=== PATIENT | female | born 1995 | race Hispanic/Latino ===

== ENCOUNTER 2022-10-24 14:29 | Inpatient (IN) | payer MEDICAID, OTHER ==
[~2022-10-24] VITALS: Ht 160 cm; Wt 71.5 kg
[~2022-10-24 14:29] MED LIST: ACET-66 PO; PREN1TAB26 PO
[2022-10-24 15:27] LABS: POTASSIUM 3.7 mmol/L (3.5-5.1)
[2022-10-24] MEDS ORDERED: PROPOFOL 1000 MG/100 ML 0 ML IV ONE (15:30)
[2022-10-24 15:37] LABS: APPEARANCE,URINE CLEAR (CLEAR); BILIRUBIN,URINE NEGATIVE (NEGATIVE); COLOR,URINE LIGHT-YELLOW (YELLOW); GLUCOSE, URINE (UA) NEGATIVE (NEGATIVE); KETONES,URINE 5 mg/dL (NEGATIVE); LEUKOCYTE ESTERASE ,URINE NEGATIVE Leu/uL (NEGATIVE); NITRATE,URINE NEGATIVE (NEGATIVE); OCCULT BLOOD,URINE NEGATIVE (NEGATIVE); PH,URINE 6.5 (5.0-8.0); PROTEIN,URINE NEGATIVE (NEGATIVE); UROBILINOGEN,URINE 0.2 mg/dL (0.2-1.0)
[2022-10-24 15:42] LABS: HCG,QUALITATIVE URINE NEGATIVE (NEGATIVE)
[2022-10-24 15:44] LABS: BACTERIA,URINE MOD /HPF (None Seen); SQUAMOUS EPITHELIAL CELL,UR FEW /HPF (0-2)
[2022-10-24 15:46] LABS: BASOPHILS % (AUTO) 0.3 % (0.0-5.0); EOSINOPHILS % (AUTO) 0.9 % (0.0-8.0); HEMATOCRIT 34.1 % (36-48); MEAN CORPUSCULAR HEMOGLOBIN 24.6 pg (27.0-33.0); MEAN CORPUSCULAR HGB CONC 33.4 g/dL (32.0-36.0); MEAN CORPUSCULAR VOLUME 73.7 fL (79-99); NEUTROPHILS % (AUTO) 71.4 % (40.0-77.0); PLATELET COUNT (AUTO) 536 K/uL (130-400); RED BLOOD CELL COUNT(AUTO) 4.63 MIL/uL (4.00-5.50); RED CELL DISTRIBUTION WIDTH 12.4 % (11.0-15.5); WHITE BLOOD COUNT (AUTO) 10.3 K/uL (4.8-10.8)
[2022-10-24] MEDS ORDERED: KETOROLAC 15MG/ML VIAL (15MG/ML) IV ONE (16:00)
[2022-10-24] MEDS ORDERED: CEFTRIAXONE 1G VIAL IVP ONE (16:00)
[2022-10-24] MEDS ORDERED: 0.9%NACL 1000ML 1,000 ML IV ONE (16:00)
[2022-10-24] MEDS ORDERED: MORPHINE 2 MG SYG IVP PRN (18:30)
[2022-10-24] MEDS ORDERED: VANCOMYCIN PROTOCOL PER PHARMACY IV SCH (18:30)
[2022-10-24 19:11] LABS: HEMOGLOBIN A1C 11.1 % (4.0-6.0)
[2022-10-24] MEDS: ZOSYN 3.375GM +NS 50ML IV SCH (19:11)
[2022-10-24] MEDS: FAMOTIDINE 20MG VIAL IV SCH (21:02)
[2022-10-24] MEDS: VANCOMYCIN 1G/250ML KIT 250 ML IV SCH (21:02)
[2022-10-24] MEDS: ACETAMINOPHEN 325 MG TAB PO PRN (21:03)
[2022-10-24 23:30] VITALS: BP 120/70
[2022-10-25] VITALS (24 sets, daily range): BP systolic 108–126; BP diastolic 62–79
[2022-10-25] MEDS: ACETAMINOPHEN 325 MG TAB PO PRN ×2 (00:06→05:32)
[2022-10-25] MEDS: ONDANSETRON 4MG INJ IVP PRN ×2 (00:06→21:20)
[2022-10-25] MEDS: ZOSYN 3.375GM +NS 50ML IV SCH ×3 (02:40→21:01)
[2022-10-25 04:55] LABS: BASOPHILS % (AUTO) 0.4 % (0.0-5.0); HEMATOCRIT 30.6 % (36-48); LYMPHOCYTES % (AUTO) 28.8 % (21.0-51.0); MEAN CORPUSCULAR HGB CONC 32.7 g/dL (32.0-36.0); MEAN CORPUSCULAR VOLUME 76.5 fL (79-99); MONOCYTES % (AUTO) 6.9 % (3.0-13.0); NEUTROPHILS % (AUTO) 62.3 % (40.0-77.0); PLATELET COUNT (AUTO) 425 K/uL (130-400); RED CELL DISTRIBUTION WIDTH 12.3 % (11.0-15.5); WHITE BLOOD COUNT (AUTO) 10.8 K/uL (4.8-10.8)
[2022-10-25 05:06] LABS: ALBUMIN 2.4 g/dL (3.5-5.0); CREATININE 0.7 mg/dL (0.5-1.5); POTASSIUM 3.6 mmol/L (3.5-5.1); TOTAL PROTEIN, SERUM 7.4 g/dL (6.0-8.3)
[2022-10-25] MEDS: INSULIN HUMULIN R 100 UNIT/ML 3ML SQ SCH ×3 (05:42→18:00)
[2022-10-25] MEDS: FAMOTIDINE 20MG VIAL IV SCH ×2 (08:36→21:01)
[2022-10-25] MEDS: VANCOMYCIN 1G/250ML KIT 250 ML IV SCH ×2 (08:47→21:01)
[2022-10-25] MEDS ORDERED: LIDOCAINE HCL 1% 20 ML VIAL ONE (16:20)
[2022-10-25] MEDS ORDERED: BUPIVACAINE/PF 0.5% 10ML VIAL ONE (16:20)
[2022-10-25] MEDS ORDERED: ROCURONIUM 10MG/1ML SYR 10 MG/ML ML ONE (18:01)
[2022-10-25] MEDS ORDERED: MIDAZOLAM HCL 1 MG/ML 2ML VIAL ONE (18:01)
[2022-10-25] MEDS ORDERED: PROPOFOL 10 MG/ML 20ML VIAL IV ONE (18:01)
[2022-10-25] MEDS ORDERED: ONDANSETRON 4MG INJ ONE (18:01)
[2022-10-25] MEDS ORDERED: FENTANYL CITRATE PF 50 MCG/1 ML 2ML VIAL ONE (18:03)
[2022-10-25] MEDS ORDERED: HYDROMORPHONE 1 MG INJ IVP PRN (20:30)
[2022-10-25] MEDS ORDERED: OXYCODONE/ACETAMIN 5/325MG TAB PO PRN (20:30)
[2022-10-26 00:15] VITALS: BP 111/67
[2022-10-26] MEDS: ZOSYN 3.375GM +NS 50ML IV SCH ×3 (02:19→17:40)
[2022-10-26 03:10] VITALS: BP 115/57
[2022-10-26 05:12] LABS: BASOPHILS % (AUTO) 0.2 % (0.0-5.0); EOSINOPHILS % (AUTO) 2.2 % (0.0-8.0); HEMATOCRIT 28.1 % (36-48); LYMPHOCYTES % (AUTO) 34.7 % (21.0-51.0); MEAN CORPUSCULAR HEMOGLOBIN 24.3 pg (27.0-33.0); MEAN CORPUSCULAR HGB CONC 32.7 g/dL (32.0-36.0); MEAN CORPUSCULAR VOLUME 74.1 fL (79-99); MONOCYTES % (AUTO) 3.9 % (3.0-13.0); NEUTROPHILS % (AUTO) 58.7 % (40.0-77.0); PLATELET COUNT (AUTO) 423 K/uL (130-400); RED BLOOD CELL COUNT(AUTO) 3.79 MIL/uL (4.00-5.50); RED CELL DISTRIBUTION WIDTH 12.1 % (11.0-15.5); WHITE BLOOD COUNT (AUTO) 9.1 K/uL (4.8-10.8)
[2022-10-26] MEDS: ONDANSETRON 4MG INJ IVP PRN (05:25)
[2022-10-26] MEDS: INSULIN HUMULIN R 100 UNIT/ML 3ML SQ SCH ×5 (05:25→19:58)
[2022-10-26 05:32] LABS: ALBUMIN 2.2 g/dL (3.5-5.0); CREATININE 0.7 mg/dL (0.5-1.5); MAGNESIUM 1.8 mg/dL (1.80-2.40); POTASSIUM 3.3 mmol/L (3.5-5.1); TOTAL PROTEIN, SERUM 7.1 g/dL (6.0-8.3)
[2022-10-26 07:30] VITALS: BP 122/72
[2022-10-26] MEDS: VANCOMYCIN 1G/250ML KIT 250 ML IV SCH ×2 (08:53→19:58)
[2022-10-26] MEDS: FAMOTIDINE 20MG VIAL IV SCH ×2 (08:53→19:58)
[2022-10-26] MEDS ORDERED: KCL 20 MEQ ERTAB PO SCH (10:30)
[2022-10-26 11:00] VITALS: BP 119/76
[2022-10-26 16:00] VITALS: BP 124/81
[2022-10-26] MEDS: MAGNESIUM 2GM PREMIX 50ML 50 ML IV SCH (17:32)
[2022-10-26 20:00] VITALS: BP 124/75
[2022-10-27] VITALS: BP 119/77
[2022-10-27] MEDS: ZOSYN 3.375GM +NS 50ML IV SCH ×3 (03:09→19:08)
[2022-10-27 04:00] VITALS: BP 128/70
[2022-10-27 05:15] LABS: BASOPHILS % (AUTO) 0.4 % (0.0-5.0); EOSINOPHILS % (AUTO) 3.7 % (0.0-8.0); HEMATOCRIT 29.2 % (36-48); LYMPHOCYTES % (AUTO) 35.8 % (21.0-51.0); MEAN CORPUSCULAR HEMOGLOBIN 24.5 pg (27.0-33.0); MEAN CORPUSCULAR HGB CONC 33.2 g/dL (32.0-36.0); MEAN CORPUSCULAR VOLUME 73.7 fL (79-99); MONOCYTES % (AUTO) 6.2 % (3.0-13.0); NEUTROPHILS % (AUTO) 53.8 % (40.0-77.0); PLATELET COUNT (AUTO) 425 K/uL (130-400); RED BLOOD CELL COUNT(AUTO) 3.96 MIL/uL (4.00-5.50); RED CELL DISTRIBUTION WIDTH 12.2 % (11.0-15.5); WHITE BLOOD COUNT (AUTO) 7.1 K/uL (4.8-10.8)
[2022-10-27 05:30] LABS: ALBUMIN 2.3 g/dL (3.5-5.0); CREATININE 0.8 mg/dL (0.5-1.5); MAGNESIUM 1.9 mg/dL (1.80-2.40); POTASSIUM 3.4 mmol/L (3.5-5.1); TOTAL PROTEIN, SERUM 7.2 g/dL (6.0-8.3)
[2022-10-27] MEDS: INSULIN HUMULIN R 100 UNIT/ML 3ML SQ SCH ×8 (06:00→21:11)
[2022-10-27 07:30] VITALS: BP 131/62
[2022-10-27] MEDS: FAMOTIDINE 20MG VIAL IV SCH ×2 (10:24→20:14)
[2022-10-27] MEDS: VANCOMYCIN 1G/250ML KIT 250 ML IV SCH ×2 (10:25→21:09)
[2022-10-27 11:30] VITALS: BP 129/80
[2022-10-27 16:00] VITALS: BP 125/73
[2022-10-27] MEDS ORDERED: VANCOMYCIN 1.5 GM/250 ML BAG 250 ML IV ONE (18:30)
[2022-10-27] MEDS ORDERED: POTASSIUM CHLORIDE 20MEQ/100ML 100 ML IV PRN (18:30)
[2022-10-27] MEDS ORDERED: PHARMACY COMMUNICATION MISC SCH (18:30)
[2022-10-27] MEDS ORDERED: POTASSIUM CHLORIDE 10% ELIXIR 20 MEQ/15 ML UDCUP PO PRN (18:30)
[2022-10-27] MEDS ORDERED: LIDOCAINE HCL-MPF 1% 2ML VIAL IV PRN (18:30)
[2022-10-27 20:00] VITALS: BP 140/80
[2022-10-27] MEDS: KCL 20 MEQ ERTAB PO PRN (20:15)
[2022-10-27] MEDS: MAGNESIUM 2GM PREMIX 50ML 50 ML IV SCH (20:15)
[2022-10-28] VITALS: BP 102/67
[2022-10-28] MEDS: KCL 20 MEQ ERTAB PO PRN (01:01)
[2022-10-28] MEDS: ZOSYN 3.375GM +NS 50ML IV SCH ×2 (01:01→10:57)
[2022-10-28 04:00] VITALS: BP 121/73
[2022-10-28 05:27] LABS: BASOPHILS % (AUTO) 0.5 % (0.0-5.0); EOSINOPHILS % (AUTO) 3.9 % (0.0-8.0); HEMATOCRIT 28.7 % (36-48); LYMPHOCYTES % (AUTO) 34.7 % (21.0-51.0); MEAN CORPUSCULAR HEMOGLOBIN 24.4 pg (27.0-33.0); MEAN CORPUSCULAR HGB CONC 32.8 g/dL (32.0-36.0); MEAN CORPUSCULAR VOLUME 74.4 fL (79-99); MONOCYTES % (AUTO) 7.4 % (3.0-13.0); NEUTROPHILS % (AUTO) 53.2 % (40.0-77.0); PLATELET COUNT (AUTO) 430 K/uL (130-400); RED BLOOD CELL COUNT(AUTO) 3.86 MIL/uL (4.00-5.50); RED CELL DISTRIBUTION WIDTH 12.3 % (11.0-15.5); WHITE BLOOD COUNT (AUTO) 6.1 K/uL (4.8-10.8)
[2022-10-28 05:41] LABS: CREATININE 0.8 mg/dL (0.5-1.5); MAGNESIUM 2.1 mg/dL (1.80-2.40); POTASSIUM 4.4 mmol/L (3.5-5.1)
[2022-10-28] MEDS ORDERED: VANCOMYCIN 1.25 GM/250 ML BAG 250 ML IV SCH ×3 (06:00→22:00)
[2022-10-28] MEDS: INSULIN HUMULIN R 100 UNIT/ML 3ML SQ SCH ×2 (06:07→11:30)
[2022-10-28] MEDS ORDERED: INSULIN GLARGINE 100 UNITS/ML 10 ML VIAL SQ SCH (08:00)
[2022-10-28 08:25] VITALS: BP 108/70
[2022-10-28] MEDS: FAMOTIDINE 20MG VIAL IV SCH (09:34)
[2022-10-28] MEDS ORDERED: GLIM4TAB36 PO (11:06)
[2022-10-28] MEDS ORDERED: METF-446 PO (11:06)
[2022-10-28 12:30] VITALS: BP 114/73
[2022-10-28 16:00] VITALS: BP 121/75
== END 2022-10-28 17:30 | disposition home or self-care (01) | DRG 602 ==
LOC: EDH 14:29 → EDHIP 14:30 → 3BH 22:46
PROVIDERS: ADMIT Hospitalist; ATTEND Hospitalist
PROC: 0J980ZZ Drainage of Abdomen Subcutaneous Tissue and Fascia, Open Approach (ICD-10-PCS; principal; 2022-10-25 18:10)
DX: L03.311 Cellulitis of abdominal wall (principal); E43 Unspecified severe protein-calorie malnutrition; E87.1 Hypo-osmolality and hyponatremia; Z20.822 Contact with and (suspected) exposure to COVID-19; L02.211 Cutaneous abscess of abdominal wall; E11.65 Type 2 diabetes mellitus with hyperglycemia; E66.9 Obesity, unspecified; D64.9 Anemia, unspecified; Z79.84 Long term (current) use of oral hypoglycemic drugs; Z98.891 History of uterine scar from previous surgery; Z68.27 Body mass index [BMI] 27.0-27.9, adult
CPT/HCPCS: 36415; 76705; 80048; 80053; 80202; 81001; 81025; 82948; 83036; 83605; 83735; 84145; 85025; 87070; 87076; 87205; 87635; A6266; G0378; J0696; J1815; J1885; J2250; J2405; J2543; J2704; J3010; J3370; J3475; J3490; J7030

== ENCOUNTER → 2022-10-30 | Outpatient (CLI) | payer MEDICAID, OTHER ==
[~2022-10-30] MED LIST changes: +GLIM4TAB36 PO; +METF-446 PO
== END | disposition home or self-care (01) ==
LOC: WHH 14:09
PROVIDERS: ATTEND Family Medicine
DX: T81.89XA Other complications of procedures, not elsewhere classified, initial encounter (principal); S31.105A Unspecified open wound of abdominal wall, periumbilic region without penetration into peritoneal cavity, initial encounter; I10 Essential (primary) hypertension; E11.65 Type 2 diabetes mellitus with hyperglycemia; E66.01 Morbid (severe) obesity due to excess calories; Z68.33 Body mass index [BMI] 33.0-33.9, adult; X58.XXXA Exposure to other specified factors, initial encounter; Y93.89 Activity, other specified; Y99.8 Other external cause status; Y83.8 Other surgical procedures as the cause of abnormal reaction of the patient, or of later complication, without mention of misadventure at the time of the procedure; Y92.238 Other place in hospital as the place of occurrence of the external cause
CPT/HCPCS: 99215; A4450

== ENCOUNTER → 2022-11-14 | Outpatient (CLI) | payer MEDICAID, OTHER ==
[~2022-11-14] MED LIST changes: +LIDOCAINE HCL 4% LTA SOL 4 ML VIAL TP ONE
== END | disposition home or self-care (01) ==
LOC: WHH 08:10
PROVIDERS: ATTEND Family Medicine
DX: T81.89XD Other complications of procedures, not elsewhere classified, subsequent encounter (principal); S31.105D Unspecified open wound of abdominal wall, periumbilic region without penetration into peritoneal cavity, subsequent encounter; I10 Essential (primary) hypertension; E11.65 Type 2 diabetes mellitus with hyperglycemia; E66.01 Morbid (severe) obesity due to excess calories; Z68.33 Body mass index [BMI] 33.0-33.9, adult; X58.XXXD Exposure to other specified factors, subsequent encounter; Y83.8 Other surgical procedures as the cause of abnormal reaction of the patient, or of later complication, without mention of misadventure at the time of the procedure
CPT/HCPCS: 99214; A6248; A4450

== ENCOUNTER → 2022-11-21 | Outpatient (CLI) | payer MEDICAID, OTHER ==
[~2022-11-21] MED LIST changes: -LIDOCAINE HCL 4% LTA SOL 4 ML VIAL TP ONE
== END | disposition home or self-care (01) ==
LOC: WHH 08:14
PROVIDERS: ATTEND Family Medicine
DX: T81.89XD Other complications of procedures, not elsewhere classified, subsequent encounter (principal); S31.105D Unspecified open wound of abdominal wall, periumbilic region without penetration into peritoneal cavity, subsequent encounter; E11.65 Type 2 diabetes mellitus with hyperglycemia; E66.01 Morbid (severe) obesity due to excess calories; I10 Essential (primary) hypertension; Z68.33 Body mass index [BMI] 33.0-33.9, adult; X58.XXXD Exposure to other specified factors, subsequent encounter; Y83.8 Other surgical procedures as the cause of abnormal reaction of the patient, or of later complication, without mention of misadventure at the time of the procedure
CPT/HCPCS: 99214